=== PATIENT | male | born 1985 ===

== ENCOUNTER → 2020-06-22 | Outpatient (CLI) | payer OTHER ==
[2020-06-22 16:45] LABS: Follicle Stimulating Hormone 2.7 IU/L (1.4-18.1); Leuteinizing Hormone 5.1 IU/L (1.5-9.3); Prolactin 11.67 ng/mL (2.8-29.2)
== END | disposition home or self-care (01) ==
LOC: LAB 16:06
PROVIDERS: ATTEND Urology
DX: Z30.09 Encounter for other general counseling and advice on contraception (principal)
CPT/HCPCS: 36415; 83001; 83002; 84146; 84403